=== PATIENT | female | born 1945 | race Caucasian/White ===

== ENCOUNTER 2018-02-11 15:00 | Inpatient (IN) | payer MEDICAID ==
[~2018-02-11] VITALS: Ht 160 cm; Wt 62.6 kg
[~2018-02-11 15:00] MED LIST: GABA-533 PO; GLIPIZIDE PO; HYDR25TA PO; METF10002 PO
[2018-02-11 15:59] LABS: BASOPHILS % 0.6 % (0.0-2.0); EOSINOPHILS % 1.6 % (0.0-5.0); HEMATOCRIT. 35.4 % (36.0-48.0); HEMOGLOBIN. 12.4 g/dL (12.0-16.0); LYMPHOCYTES % 22.1 % (20.0-50.0); MEAN CORPUSCULAR HEMOGLOBIN 30.2 pg (28.0-32.0); MEAN CORPUSCULAR VOLUME 85.8 fL (81.0-99.0); MEAN PLATELET VOLUME 7.5 fl (7.4-10.4); NEUTROPHILS % 70.7 % (40.0-76.0); PLATELET 289 x1000/uL (130-400); RED BLOOD CELL COUNT 4.12 mill/uL (4.2-5.4); RED CELL DISTRIBUTION WIDTH 12.7 % (11.6-14.6)
[2018-02-11 16:03] LABS: PARTIAL THROMBOPLASTIN TIME 24.9 sec (23.4-31.0); PROTHROMBIN TIME 10.4 sec (9.4-11.6)
[2018-02-11 16:18] LABS: CHLORIDE 103 mEq/L (98-107)
[2018-02-11 17:51] LABS: CLARITY URINE CLOUDY (CLEAR); COLOR URINE YELLOW (YELLOW); KETONES URINE NEGATIVE (NEGATIVE); LEUKOCYTE ESTERASE URINE 2+ (NEGATIVE); NITRITE URINE NEGATIVE (NEGATIVE); OCCULT BLOOD URINE NEGATIVE (NEGATIVE); PH URINE >=9.0 (4.5-8.0); PROTEIN URINE 2+ (NEGATIVE); SPECIFIC GRAVITY URINE 1.014 (1.005-1.030); UROBILINOGEN URINE 0.2 E.U./dL (0.2-1.0)
[2018-02-11] MEDS ORDERED: ASPIRIN 81MG TABLET PO ONE (21:00)
[2018-02-11] MEDS ORDERED: DIPHENHYDRAMINE 50MG/ML VIAL IV PRN (21:30)
[2018-02-11] MEDS ORDERED: CLONIDINE 0.1MG TABLET PO PRN (21:30)
[2018-02-11] MEDS ORDERED: DOCUSATE SODIUM 100MG CAPSULE PO PRN (21:30)
[2018-02-11] MEDS ORDERED: ACETAMINOPHEN 325MG TABLET PO PRN (21:30)
[2018-02-11] MEDS ORDERED: NITROGLYCERIN 0.4MG TABLET SL SL PRN (21:30)
[2018-02-11] MEDS ORDERED: MAGNESIUM/ALUMINUM HYDROXIDE/SIMETHICONE 30ML UDC PO PRN (21:30)
[2018-02-11] MEDS ORDERED: NA PHOS,M-B/NA PHOS,DI-BA ENEMA 118ML PR PRN (21:30)
[2018-02-11] MEDS ORDERED: TRAMADOL 50MG TABLET PO PRN (21:30)
[2018-02-11] MEDS ORDERED: GUAIFENESIN 200MG/10ML SUGAR FREE UDC PO PRN (21:30)
[2018-02-11] MEDS ORDERED: ONDANSETRON HCL 4MG/2ML VIAL IV PRN (21:30)
[2018-02-11] MEDS ORDERED: ZOLPIDEM TARTRATE 5MG TABLET PO PRN (21:30)
[2018-02-11] MEDS ORDERED: IPRATROPIUM/ALBUTEROL 0.5-3(2.5)MG/3ML NEB INH PRN (21:30)
[2018-02-11] MEDS ORDERED: LORAZEPAM 0.5MG TABLET PO PRN (21:30)
[2018-02-11] MEDS ORDERED: DEXTROSE 50% WATER 50ML SYRINGE IV PRN (22:30)
[2018-02-11 22:50] LABS: CREATINE KINASE 109 IU/L (26-192)
[2018-02-11 23:39] VITALS: BP 158/59
[2018-02-12] VITALS: BP 158/59
[2018-02-12] MEDS ORDERED: LEVOFLOXACIN 500MG PREMIX 100 ML IV NR (02:00)
[2018-02-12 04:00] VITALS: BP 121/55
[2018-02-12] MEDS: METOCLOPRAMIDE 10MG/10 ML UDC PO SCH ×3 (06:29→16:45)
[2018-02-12] MEDS: SUCRALFATE 1 G/10 ML UDC PO SCH ×4 (06:29→21:24)
[2018-02-12] MEDS: BLOOD SUGAR DIAGNOSTIC STRIP TEST SCH ×4 (06:35→21:21)
[2018-02-12] MEDS: INSULIN LISPRO 100 UNITS/ML SUBCUT SCH ×4 (06:36→21:32)
[2018-02-12 07:30] LABS: CREATINE KINASE 94 IU/L (26-192)
[2018-02-12 07:31] LABS: CREATINE KINASE MB FRACTION 1.1 ng/mL (0.5-3.6)
[2018-02-12 08:00] VITALS: BP 143/45
[2018-02-12] MEDS: FAMOTIDINE 20MG TABLET PO SCH (08:49)
[2018-02-12] MEDS: ASPIRIN 325MG EC TABLET PO SCH (08:49)
[2018-02-12] MEDS: LISINOPRIL 20MG TABLET PO SCH ×2 (08:50→21:24)
[2018-02-12] MEDS: ENOXAPARIN 40MG/0.4ML SYR SUBCUT SCH (08:53)
[2018-02-12 12:00] VITALS: BP 116/49
[2018-02-12 16:00] VITALS: BP 120/50
[2018-02-12 20:00] VITALS: BP 113/48
[2018-02-12] MEDS ORDERED: ATORVASTATIN CALCIUM 10MG TABLET PO SCH (21:00)
[2018-02-12] MEDS ORDERED: LEVOFLOXACIN 250MG PREMIX 50 ML IV SCH (23:00)
[2018-02-13] VITALS: BP 137/66
[2018-02-13 04:00] VITALS: BP 115/54
[2018-02-13] MEDS: METOCLOPRAMIDE 10MG/10 ML UDC PO SCH ×2 (06:26→11:45)
[2018-02-13] MEDS: SUCRALFATE 1 G/10 ML UDC PO SCH ×2 (06:26→11:45)
[2018-02-13] MEDS: BLOOD SUGAR DIAGNOSTIC STRIP TEST SCH ×2 (06:32→11:45)
[2018-02-13] MEDS: INSULIN LISPRO 100 UNITS/ML SUBCUT SCH ×2 (06:32→12:58)
[2018-02-13 08:00] VITALS: BP 127/49
[2018-02-13] MEDS: FAMOTIDINE 20MG TABLET PO SCH (09:47)
[2018-02-13] MEDS: LISINOPRIL 20MG TABLET PO SCH (09:47)
[2018-02-13] MEDS: ASPIRIN 325MG EC TABLET PO SCH (09:47)
[2018-02-13] MEDS: ENOXAPARIN 40MG/0.4ML SYR SUBCUT SCH (09:48)
[2018-02-13 12:02] VITALS: BP 161/72
[2018-02-13 13:18] VITALS: BP 161/72
== END 2018-02-13 14:05 | disposition home or self-care (01) | DRG 241 ==
LOC: ER 15:00 → 5WST 21:13 → ENRESERV 21:20 → EDBEDREQTM 22:00 → EDBEDREQ 22:00
PROVIDERS: ADMIT Internal Medicine; ATTEND Internal Medicine
DX: K29.70 Gastritis, unspecified, without bleeding (principal); I50.9 Heart failure, unspecified; I11.0 Hypertensive heart disease with heart failure; E11.65 Type 2 diabetes mellitus with hyperglycemia; K21.9 Gastro-esophageal reflux disease without esophagitis; N39.0 Urinary tract infection, site not specified; E11.43 Type 2 diabetes mellitus with diabetic autonomic (poly)neuropathy; D64.9 Anemia, unspecified; K59.00 Constipation, unspecified; F41.9 Anxiety disorder, unspecified; G47.00 Insomnia, unspecified; E78.00 Pure hypercholesterolemia, unspecified; K31.84 Gastroparesis; Z79.4 Long term (current) use of insulin; Z79.899 Other long term (current) drug therapy; Z89.511 Acquired absence of right leg below knee
CPT/HCPCS: 36415; 71045; 80053; 80061; 81003; 82550; 82553; 82962; 83036; 83690; 83880; 84484; 85025; 85610; 85730; 93005; 93970; J1650; J1815; J1956; J8597